=== PATIENT | female | born 1940 | race Hispanic/Latino ===

== ENCOUNTER 2018-07-01 15:51 | Outpatient (CLI) | payer MEDICARE, OTHER | END 2018-07-01 15:52 | disposition home or self-care (01) | LOC: LABHHL 15:51 | PROVIDERS: ATTEND Surgery | DX: C50.412 Malignant neoplasm of upper-outer quadrant of left female breast (principal) | CPT/HCPCS: 88305; 88341; 88342; 88361 ==

== ENCOUNTER 2018-08-10 06:56 | Observation (INO) | payer MEDICARE, OTHER ==
[~2018-08-10 06:56] MED LIST: ANCEF/STERILE WATER 2 GM/20 ML 2 GM/20 ML SYRINGE IV NR
[2018-08-10] MEDS ORDERED: XYLOCAINE 1% 20 mL INFILTRATI ONE (08:48)
[2018-08-10] MEDS ORDERED: XYLOCAINE 1% 20 mL ONE ×2 (08:49→14:03)
--- NOTE | 2018-08-10 10:24 | Mammography Report ---
NEEDLE LOCALIZATION AND HOOKWIRE PLACEMENT AT 2 SITESLEFT BREAST:08/10/18 00:00:00 CLINICAL: Left breast cancer at 2 sites. COMPARISON: 07/11/18 mammogram. FINDINGS: Using mammographic guidance, 1% lidocaine local anesthesia and sterile technique, two Marion needles with hookwires (10.0 cm and 7.5 cm) were placed from a lateral approach to localize two biopsy clips at the site of known cancers. The hookwires were deployed and the needles were removed. Satisfactory placement was confirmed by orthogonal views. The patient tolerated the procedure well and there were no apparent complications. IMPRESSION: Uncomplicated hookwire placement at two sites breast.
[2018-08-10] MEDS ORDERED: LACTATED RINGERS 1,000 ML IV SCH ×2 (10:40→19:00)
[2018-08-10] MEDS ORDERED: NEURONTIN PO NR (10:40)
[2018-08-10] MEDS ORDERED: TYLENOL ONE (10:48)
[2018-08-10] MEDS ORDERED: NAROPIN O.5% ONE (10:49)
[2018-08-10] MEDS ORDERED: MARCAINE 0.25% INFILTRATI ONE ×2 (10:52→14:03)
[2018-08-10] MEDS: VERSED IV PRN ×2 (10:59→11:00)
[2018-08-10] MEDS ORDERED: TYLENOL PO NR (11:00)
[2018-08-10] MEDS ORDERED: XYLOCAINE CARDIAC IV ONE (13:57)
[2018-08-10] MEDS ORDERED: DIPRIVAN 10 MG/ML IV ONE (13:57)
[2018-08-10] MEDS ORDERED: ZOFRAN ONE (13:59)
[2018-08-10] MEDS ORDERED: SUBLIMAZE ONE (14:38)
[2018-08-10] MEDS ORDERED: ROBINUL ONE (14:54)
[2018-08-10] MEDS ORDERED: MARCAINE-EPI 0.5%-1:200,000 INFILTRATI ONE (15:24)
[2018-08-10] MEDS ORDERED: CLORPACTIN WCS-90 IR ONE (16:58)
--- NOTE | 2018-08-10 17:29 | Short Stay Summary ---
Short Stay Documentation Date of service: 08/10/18 - History H&P: obtained from office - Allergies and Medications Current Medications: Allergies codeine Allergy (Verified 08/10/18 08:30) Hives PT STATES HER FAMILY DOESN'T HAVE ENZYME TO BREAK DOWN OPIOIDS - THEY JUST DON'T WORK TAPE Adverse Reaction (Uncoded 08/10/18 08:29) Unknown PT STATES MOST TAPES BLISTER HER SKIN - ADHESIVE TOO STRONG - PAPER TAPE OK Home Medications Medication Instructions Recorded Confirmed Last Taken Type Aspirin [Adult Low Dose Aspirin EC] 81 mg PO DAILY 08/05/18 08/10/18 1 Week Ago History ~08/03/18 B2/Vits A,C,E/Lut/Zeaxanth/Min 1 tab PO DAILY 08/05/18 08/05/18 08/09/18 History [Icaps Tablet] Calcium Carbonate/Vitamin D3 1 each PO BID 08/05/18 08/05/18 08/09/18 History [Calcium 500-Vit D3 200 Tablet] Cholecalciferol Vit D3 [Vitamin D3] 400 unit PO QDAY 08/05/18 08/05/18 08/09/18 History Denosumab [Prolia] 60 mg SUB-Q [id number] 08/05/18 08/05/18 Unknown History Esomeprazole Magnesium [Nexium] 20 mg PO DAILY 08/05/18 08/05/18 08/09/18 History Oxybutynin Chloride [Ditropan Xl] 10 mg PO QDAY 08/05/18 08/05/18 08/09/18 History amLODIPine [Norvasc] 10 mg PO DAILY 08/05/18 08/05/18 Unknown History diphenhydrAMINE [Benadryl CAP] 25 mg PO QHS PRN 08/05/18 08/05/18 08/09/18 History Active Medications Acetaminophen (Tylenol) 650 mg PO PREOP NR Stop: 08/11/18 23:59 Last Admin: 08/10/18 10:55 Dose: 650 mg Documented by: Cefazolin Sodium (Ancef/Sterile Water 2 Gm/20 Ml) 2 gm in 20 mls @ 80 mls/hr IV PREOP NR; Protocol Stop: 08/10/18 21:00 Lactated Ringer's (Lactated Ringers) 1,000 mls @ 100 mls/hr IV DIRECT SHONA Last Admin: 08/10/18 10:55 Dose: 100 mls/hr Documented by: - Brief post op/procedure progress note Date of procedure: 08/10/18 Pre-op diagnosis: left breast cancer of the upper outer quadrant Post-op diagnosis: same Procedure: Left partial mastectomy with SLNB and placement of biozorb Anesthesia: GETA Findings: wire and clips present; x3 SLNs Surgeon: CHRISTOPHER BRYAN Estimated blood loss: minimal Pathology: list (left partial mastectomy; x3SLNS) Specimen disposition: to lab Condition: stable - Disposition Condition at discharge: Good Disposition: DC/TX-02 SHRT-TRM GEN HOSP IP Short Stay Discharge Plan Activity: other (no heavy lifting) Diet: regular Wound: keep clean and dry Follow up with: PETE PALMA MD [Primary Care Provider] - 7 Days CHRISTOPHER BRYAN MD [Staff Physician] - 7 Days
[2018-08-10] MEDS ORDERED: BENADRYL PO PRN (18:34)
[2018-08-10] MEDS ORDERED: REGLAN PO PRN (18:34)
[2018-08-10] MEDS ORDERED: SODIUM CHLORIDE FLUSH SYRINGE 10 ML IV PRN (18:34)
[2018-08-10] MEDS ORDERED: ZOFRAN IV PRN ×2 (18:34→18:48)
[2018-08-10] MEDS ORDERED: DILAUDID IV PRN (18:48)
--- NOTE | 2018-08-10 18:50 | Anesthesia Day of Surgery ---
Anesthesia Day of Surgery - Day of Surgery Patient Examined: Yes Patient H&P Reviewed: Yes Patient is NPO: Yes Beta Blockers: No Ha's Test: N/A
--- NOTE | 2018-08-10 18:51 | Anesthesia Consultation ---
Anesthesia Consult and Med Hx Date of service: 08/10/18 - Airway Anesthetic Teeth Evaluation: Good ROM Head & Neck: Adequate Mental/Hyoid Distance: Adequate Mallampati Class: Class III Intubation Access Assessment: Probably Good - Pulmonary Exam CTA: Yes - Cardiac Exam Cardiac Exam: RRR - Pre-Operative Health Status ASA Pre-Surgery Classification: ASA3 Proposed Anesthetic Plan: General - Pulmonary Hx Smoking: Yes (FORMER QUIT IN THE 80'S) - Cardiovascular System Hx Hypertension: Yes (1999) - Central Nervous System Hx Psychiatric Problems: No - Gastrointestinal Hx Ulcer: Yes (RESOLVED) - Other Systems Hx Alcohol Use: No Hx Substance Use: No Hx Cancer: Yes
[2018-08-10] MEDS ORDERED: TYLENOL PO SCH (19:00)
--- NOTE | 2018-08-10 19:00 | Operative Report ---
PREOPERATIVE DIAGNOSIS: Left-sided breast cancer. POSTOPERATIVE DIAGNOSIS: Left-sided breast cancer. PROCEDURE: 1. Bilateral oncoplastic breast reductions. 2. Application of RAUL negative pressure wound VAC device to bilateral breasts for postoperative wound healing. SURGEON: Roderick Godfrey MD [employer]SE SUPERVISOR: None. ANESTHESIA: General. OPERATIVE INDICATIONS: The patient is a 78-year-old female with left-sided breast cancer was referred to me by Dr. Erum Lopez for breast reconstruction. The patient is planning on undergoing a lumpectomy and desired breast conservation. We discussed oncoplastic techniques and because of the fact that she had large breasts that were ptotic, she was a good candidate for bilateral breast reductions with oncoplastic technique. Risks and benefits of surgery were discussed with the patient. She agreed. OPERATIVE DETAILS: After informed consent obtained, the patient brought to the operating room and placed supine on the operating table. Preoperative antibiotics and general anesthesia were administered. The patient was prepped and draped in usual sterile fashion. Timeout was called verifying inpatient operation being performed. Preoperative markings had been made in the holding area for a Gaston pattern breast reduction utilizing superior medial pedicles. I started on the right side while Dr. Lopez began on the left side with a lumpectomy. On the right side, I recess the areola 42 mm cookie cutter, deepithelialized superior medial pedicle developed down on the chest wall and then performed a breast reduction, removing the excess medial, lateral and inferior breast tissue. We irrigated and injected a 25 mL of Marcaine in the chest wall and then achieved hemostasis and then temporarily closed the breast with merry. Once Dr. Lopez was done with her side, we evaluated the defect. The defect was a very large defect that was mostly in the upper outer quadrant. She placed a BioZorb absorbable marker for postoperative radiation on the chest wall. It appeared that we would be able to rotate the pedicle up into the defect and have very little residual deficit. So we went ahead on the left side and also performed breast reduction, reassessed the areola of 42 mm, de-epithelialize the superior medial pedicle developed on chest wall and then we removed the residual inferior medial breast tissue that was left. Achieved hemostasis, irrigated copiously. The patient had had a preoperative block on the left side that was working, so we did not inject any additional Marcaine. Temporarily closed breast with merry. We assessed the patient for size and symmetry and located the new position of the nipple areolar complexes bilaterally. This was then deepithelialized. The nipple was delivered into the incision, temporarily stapled in place. We then began with closure. We used 3-0 Monocryl deep dermals for the nipple-areola complex and the vertical limb and then a 4-0 PDS subcuticular for the nipple-areola complex and a 3-0 subcuticular Monocryl for the vertical limb. We closed the horizontal limb with a running 3-0 V-Loc barbed suture. We applied Adaptic nipple-areola complexes and then RAUL negative pressure wound VAC device to bilateral breasts for postoperative wound healing, placed the patient in a support binder. She tolerated the procedure well, awakened from general anesthesia, transferred to PACU in stable condition. ESTIMATED BLOOD LOSS: Less than 50 mL. COMPLICATIONS: None. SPECIMENS: Right breast total removed 800 grams and left breast 580 grams. JOB# [id number] Gladys/NANCY
[2018-08-10] MEDS ORDERED: TORADOL ONE (19:19)
[2018-08-10] MEDS ORDERED: TORADOL IV PRN (19:20)
[2018-08-10] MEDS ORDERED: MORPHINE IV PRN (21:14)
--- NOTE | 2018-08-10 21:28 | Operative Report ---
Operative Report Operative Report: August 10, 2018 Preoperative diagnosis: Left breast cancer of the upper outer quadrant Postoperative diagnosis: Same Procedure: Left needle localization partial mastectomy of the upper outer quadrant and SLNB and Biozorb placement Surgeon: Erum Lopez MD Anesthesia: General Findings: Left wires and clips present within radiograph specimen; x 3 SLN Complications: None EBL: Minimal Disposition:OR-plastic surgery proceeded with bilateral reduction mammoplasty Indications for operative procedure: This is a 78 year old lady with newly diagnosed multifocal left breast cancer of the upper outer quadrant, Stage I [id number] ER/CO positive. Recommendations are to proceed with breast conservatio n. 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 She understands the role of adjuvant radiation therapy and Oncotype DX will be obtained by medical oncology. Recommended placement of Biozorb following partial mastectomy given patient was undergoing immediate reduction mammoplasty, and Biozorb placement recommended so radiolog would know area of prior cancer. She wished to proceed with the above procedure. Procedure in detail: The patient was taken to radiology for wire placement for localization known area of cancer. Anesthesia placed left pectoral block. Vannessa ent was then taken to the operating room. Gen. anesthesia was administered. The left nipple was injected with radioisotope. Left breast and axilla were prepped and draped in the normal sterile operative fashion. The wires were identified. Timeout was performed. Gamma probe was inserted into the axilla. The area of hot spot was identified. A left axillary incision was made with a 15 blade knife w ith dissection taken down to the subcutaneous tissues. The axillary fascia was opened with the Bovie cautery. 3 SLNs were identified. All remaining counts were less than 10% of the highest count. Lymph nodes were sent to pathology for permanent processing. Hemostasis was obtained in the right axillary cavity. Axillary cavity was appropriately irrigated and suctioned. Hemostasis was noted. Axillary fascia was approximated and closed using interrupted 3-0 Vicryl and the skin brought together and closed using a running 4-0 Monocryl followed by skin affix. Attention was then taken towards the left breast. Superior lateral breast incision was made with a 15 blade knife along incision markings for reduction mammoplasty and dissection taken down to subcutaneous tissues. First began raising of the superior flap with removal of the wires from the skin with dissection take down to the pectoralis muscle, followed by raising of the inferior flap, medial flap and lateral fla[ with all flaps taken down to the pectoralis muscle. The breast area of concern was appropriately removed posteriorly from the pectoralis muscle with the aid of the Bovie cautery. The wires were not encountered. Specimen was marked and then sent to pathology and radiology; radiograph specimen with wires and clips present. Breast cavity was irrigated with antibiotic solution and hemostasis was obtained. The posterior de ep breast tissues were approximated and closed using interrupted 3-0 Vicryl covering the pectoralis muscle in preparation for placement of the Biozorb. a 3x4 cm Biozorb was sized to partial mastectomy cavity site that would be placed around the 1:00 position, known cancers at the 12:00 and 2:00 positions. Stay suture of 3-0 PDS was placed on the Biozorb and then the 3-dimensional BioZorb was sutured into place using interrupted 3-0 PDS. The BioZorb seated well in the partial mastectomy cavity. Plastic surgery then continued with bilateral reduction mammoplasty and left breast reduction mammoplasty pedicle covered the BioZorb very well.
[2018-08-10] MEDS: ANCEF/NS 1 GM/50 ML 1 GM/50 ML BAG IV SCH (22:00)
[2018-08-10] MEDS ORDERED: COLACE PO SCH (22:00)
[2018-08-10] MEDS: NEURONTIN PO SCH (22:09)
[2018-08-11] MEDS ORDERED: TYLENOL PO SCH (03:30)
[2018-08-11] MEDS: ANCEF/NS 1 GM/50 ML 1 GM/50 ML BAG IV SCH (06:03)
[2018-08-11] MEDS: NEURONTIN PO SCH (06:03)
--- NOTE | 2018-08-11 07:57 | Progress Note ---
Assessment and Plan This is a 78 year old with left breast cancer of the upper outer quadrant, IDCA [id number] ER/IL positive POD#1 left partial mastectomy with SLNB and bilateral reduction mammoplasty. 1. Pain in good control. 2. Incisions healing well. 3. OOB to hallway. 4. D/C planning for today. Subjective Date of service: 08/11/18 Principal diagnosis: Left breast cancer of the UOQ Interval history: POD#1 left partial mastectomy with SLNB and bilateral reduction mammoplasty. No acute events overnight. Objective - Constitutional Vitals: Vital Signs - 12hr 08/11/18 08/11/18 00:48 06:04 Temperature 97.7 F 97.7 F Pulse Rate 63 59 L Respiratory 18 20 Rate Blood Pressure 124/55 116/50 O2 Sat by Pulse 93 93 Oximetry General appearance: Present: no acute distress - EENT Eyes: PERRL, EOM intact ENT: hearing intact, clear oral mucosa, dentition normal Ears: bilateral: normal - Neck Neck: supple, normal ROM - Respiratory Respiratory effort: normal Respiratory: bilateral: CTA - Breasts Breasts: other (bilateral PICCO dressings in place, no hematomas) - Cardiovascular Rhythm: regular Heart Sounds: Present: S1 & S2 Extremities: no ischemia, pulses intact, pulses symmetrical, No edema, normal temperature, normal color, Full ROM - Gastrointestinal General gastrointestinal: Present: soft, non-tender, non-distended Rectal Exam: deferred - Genitourinary Female genitourinary: deferred - Integumentary Integumentary: clear, warm, dry - Musculoskeletal Musculoskeletal: strength equal bilaterally - Neurologic Neurologic: CNII-XII intact, moves all extremities - Psychiatric Psychiatric: appropriate mood/affect, intact judgment & insight, memory intact, cooperative Medications & Allergies - Medications Allergies/Adverse Reactions: Allergies codeine Allergy (Verified 08/10/18 08:30) Hives PT STATES HER FAMILY DOESN'T HAVE ENZYME TO BREAK DOWN OPIOIDS - THEY JUST DON'T WORK TAPE Adverse Reaction (Uncoded 08/10/18 08:29) Unknown PT STATES MOST TAPES BLISTER HER SKIN - ADHESIVE TOO STRONG - PAPER TAPE OK Home Medications: Home Medications Medication Instructions Recorded Confirmed Last Taken Type Aspirin [Adult Low Dose Aspirin EC] 81 mg PO DAILY 08/05/18 08/10/18 1 Week Ago History ~08/03/18 B2/Vits A,C,E/Lut/Zeaxanth/Min 1 tab PO DAILY 08/05/18 08/05/18 08/09/18 History [Icaps Tablet] Calcium Carbonate/Vitamin D3 1 each PO BID 08/05/18 08/05/18 08/09/18 History [Calcium 500-Vit D3 200 Tablet] Cholecalciferol Vit D3 [Vitamin D3] 400 unit PO QDAY 08/05/18 08/05/18 08/09/18 History Denosumab [Prolia] 60 mg SUB-Q [id number] 08/05/18 08/05/18 Unknown History Esomeprazole Magnesium [Nexium] 20 mg PO DAILY 08/05/18 08/05/18 08/09/18 History Oxybutynin Chloride [Ditropan Xl] 10 mg PO QDAY 08/05/18 08/05/18 08/09/18 History amLODIPine [Norvasc] 10 mg PO DAILY 08/05/18 08/05/18 Unknown History diphenhydrAMINE [Benadryl CAP] 25 mg PO QHS PRN 08/05/18 08/05/18 08/09/18 History Active Medications: Generic Name Dose Route Start Last Admin Trade Name Freq PRN Reason Stop Dose Admin Acetaminophen 1,000 mg 08/11/18 03:30 08/11/18 03:42 Tylenol PO 1,000 mg Q8HR SHONA Administration Diphenhydramine HCl 25 mg 08/10/18 18:34 Benadryl PO Q8H PRN Itching Docusate Sodium 100 mg 08/10/18 22:00 08/10/18 22:09 Colace PO 100 mg BID SHONA Administration Gabapentin 300 mg 08/10/18 22:00 08/11/18 06:03 Neurontin PO 300 mg Q8HR SHONA Administration Cefazolin Sodium 1 gm in 50 mls @ 100 mls/hr 08/10/18 22:00 08/11/18 06:03 Ancef/Ns 1 Gm/50 Ml IV 100 mls/hr Q8HR SHONA Administration Protocol Lactated Ringer's 1,000 mls @ 75 mls/hr 08/10/18 19:00 08/10/18 22:11 Lactated Ringers IV 75 mls/hr DIRECT SHONA Administration Ketorolac Tromethamine 30 mg 08/10/18 19:20 08/10/18 19:20 Toradol IV 08/15/18 19:25 30 mg ONCE PRN Administration Pain , Severe (7-10) Metoclopramide HCl 10 mg 08/10/18 18:34 Reglan PO Q6H PRN Nausea And Vomiting Morphine Sulfate 2 mg 08/10/18 21:14 Morphine IV Q4H PRN Pain, Moderate (4-6) Ondansetron HCl 4 mg 08/10/18 18:34 Zofran IV Q8H PRN N/V unrelieved by Reglan Sodium Chloride 10 ml 08/10/18 18:34 Sodium Chloride Flush Syringe 10 Ml IV PRN PRN LINE FLUSH
--- NOTE | 2018-08-11 08:22 | Mammography Report ---
SPECIMEN RADIOGRAPH LEFT BREAST: 08/10/18 06:56:00 CLINICAL: Surgical excision of cancer at 2 sites. FINDINGS: The targeted lesions with localizer clips and hookwires are identified within the specimen. IMPRESSION: Excision of the targeted lesions.
[2018-08-11 08:36] VITALS: BP 127/50
== END 2018-08-11 10:35 | disposition home or self-care (01) ==
LOC: OR 06:56 → OB 18:34
PROVIDERS: ADMIT Surgery; ATTEND Surgery
DX: C50.412 Malignant neoplasm of upper-outer quadrant of left female breast (principal); C50.912 Malignant neoplasm of unspecified site of left female breast
CPT/HCPCS: 19281; 19282; 19318; 64450; 76098; 78800; 88305; 88307; 88342; 96365; 96366; 96375; A9541; C1728; G0378; J0690; J1170; J1885; J2001; J2250; J2405; J2704; J3010; J7120; 88309; 88333; J2795

== ENCOUNTER 2020-05-30 10:12 | Outpatient (CLI) | payer MEDICARE ==
--- NOTE | 2020-05-30 11:09 | Mammography Report ---
DIGITAL SCREENING MAMMOGRAM WITH CAD, 05/30/2020 CLINICAL INFORMATION / INDICATION: Routine screening mammography. TECHNIQUE: Digital bilateral 2D mammography was obtained in the craniocaudal and mediolateral obliqu e projections. This examination was interpreted with the benefit of Computer-Aided Detection analysis . COMPARISON: 05/25/2019, 07/11/2018, 07/01/2018, 05/17/2018 FINDINGS: Breast Density: There are scattered areas of fibroglandular density. No dominant mass, suspicious calcifications, or architectural distortion in either breast. There are stable postoperative changes in the left breast and unchanged bilateral benign calcificatio ns. A right chest Port-A-Cath is again partially visualized. IMPRESSION: No mammographic evidence of malignancy. Follow up recommendation: Routine yearly BI-RADS Category 2: Benign. A "normal" or negative report should not discourage follow up or biopsy of a clinically significant f inding. A written summary of these findings will be mailed to the patient. The patient will be entered into a mammography reporting system which will generate a reminder letter for the patient's next appointmen t at the appropriate interval. The [employer] recommends yearly mammograms starting at age 40 and continuing as l sobeida as a woman is in good health. Breast MRI is recommended for women with an approximate 20-25% or greater lifetime risk of breast cancer, including women with a strong family history of breast or ova urbano cancer or who have been treated for Hodgkin's disease. Signer Name: Mumtaz Jacobson MD Signed: 05/30/2020 11:05 AM Workstation Name: [id number]
== END 2020-05-30 10:13 | disposition home or self-care (01) ==
LOC: SPVWC 10:12
PROVIDERS: ATTEND Surgery
DX: Z12.31 Encounter for screening mammogram for malignant neoplasm of breast (principal)
CPT/HCPCS: 77067

== ENCOUNTER 2020-12-17 12:40 | Outpatient (CLI) | payer MEDICARE ==
--- NOTE | 2020-12-17 13:35 | Ultrasound Report ---
ULTRASOUND GUIDED LEFT BREAST SEROMA ASPIRATION, 12/17/2020 CLINICAL INFORMATION / INDICATION: Recurrent left breast seroma. History of left breast cancer, statu s post partial mastectomy. COMPARISON: Left breast ultrasound dated 11/28/2020. PROCEDURE: Risks, benefits, and indications to the procedure were discussed with the patient in detail, includin g bleeding, infection, hematoma formation, and inadequate tissue sampling. The patient agreed to proc eed with both verbal and written consent. A timeout procedure was performed with two patient identifi ers. The recently seen seroma containing internal sepations was again seen without significant interval ch dm. The breast was prepped and draped in the usual sterile fashion. Lidocaine 1% with and without e pinephrine were used for local anesthesia. Under direct ultrasound guidance, a 13 gauge introducer ne edle was advanced into the seroma. Spontaneous flow of clear yellow fluid through the needle hub was observed. Approximately 20 cc of fluid was removed and discarded. The needle was removed and manual pressure was held until hemostasis was established. A sterile dressing was applied to the skin. The patient tolerated the procedure without difficulty. No complications were encountered. Post aspiration instructions were discussed with the patient and given in writing. Specimens were se nt to pathology. IMPRESSION: Technically successful ultrasound guided left breast seroma aspiration. Signer Name: Mumtaz Jacobson MD Signed: 12/17/2020 1:31 PM Workstation Name: [id number]
== END 2020-12-17 12:41 | disposition home or self-care (01) ==
LOC: SPVWC 12:40
PROVIDERS: ATTEND Surgery
DX: N64.89 Other specified disorders of breast (principal); I10 Essential (primary) hypertension; K21.9 Gastro-esophageal reflux disease without esophagitis; M19.90 Unspecified osteoarthritis, unspecified site; Z96.652 Presence of left artificial knee joint; Z88.5 Allergy status to narcotic agent; Z88.8 Allergy status to other drugs, medicaments and biological substances; Z79.82 Long term (current) use of aspirin; Z79.899 Other long term (current) drug therapy; Z87.891 Personal history of nicotine dependence; Z98.41 Cataract extraction status, right eye; Z98.42 Cataract extraction status, left eye; Z85.3 Personal history of malignant neoplasm of breast; Z98.890 Other specified postprocedural states